=== PATIENT | female | born 1985 | race Caucasian/White ===

== ENCOUNTER 2021-07-25 11:20 | Emergency (ER) | payer SELFPAY ==
[2021-07-25] MEDS ORDERED: Acetaminophen 500 MG TAB ONE (11:51)
[2021-07-25] MEDS ORDERED: Ondansetron PF 4 MG/2 ML Vial ONE (11:51)
[2021-07-25 12:14] LABS: #Lymphocytes 0.4 thou/uL (1.20-3.40); #Monocytes 0.3 thou/uL (0.11-0.59); #Neutrophils 4.6 thou/uL (1.40-6.50); %Basophils 0.2 % (0.0-1.0); %Eosinophils 0.1 % (0.0-10.0); %Lymphocytes 7.5 % (21.0-51.0); %Monocytes 6.4 % (0.0-10.0); %Neutrophils 85.8 % (42.0-75.0); Hemoglobin 14.2 g/dL (12.0-16.0); Mean Corpuscular HGB CONC 34.4 g/dL (32.0-36.0); Mean Corpuscular Hemoglobin 31.9 pg (27.0-31.0); Mean Corpuscular Volume 92.8 fL (78.0-98.0); Mean Platelet Volume 7.2 fL (7.4-10.4); Platelet Count 161 thou/uL (130-400); RBC Distribution Width 11.5 % (11.5-14.5); Red Blood Cell (RBC) Count 4.44 mill/uL (4.20-5.40); White Blood Cell (WBC) Count 5.3 thou/uL (4.8-10.8)
[2021-07-25 12:39] LABS: ALT (SGPT) 15 U/L (8-55); AST (SGOT) 24 U/L (5-34); Albumin 4.8 g/dL (3.5-5.0); Alkaline Phosphatase 55 U/L (40-110); Anion Gap 16 mmol/L (10-20); BUN (Urea Nitrogen) 10 mg/dL (7.0-18.7); Bilirubin, Total 0.4 mg/dL (0.2-1.2); Calc. Creatinine Clearance 0 mL/min (70-130); Calcium 9.6 mg/dL (7.8-10.44); Carbon Dioxide 24 mmol/L (22-29); Chloride 99 mmol/L (98-107); Globulin 3.3 g/dL (2.4-3.5); Glucose 109 mg/dL (70-105); Potassium 3.5 mmol/L (3.5-5.1); Protein, Total 8.1 g/dL (6.0-8.3); Sodium 135 mmol/L (136-145)
[2021-07-25 19:02] LABS: SARS-CoV-2 PCR by NAA Not Detected (NotDetected)
== END 2021-07-25 13:10 | disposition home or self-care (01) ==
LOC: ERS 11:20
DX: U07.1 COVID-19 (principal); R11.2 Nausea with vomiting, unspecified; Z20.822 Contact with and (suspected) exposure to COVID-19
CPT/HCPCS: 71045; 80053; 84484; 85025; 96374; J2405; U0003; U0005

== ENCOUNTER 2023-04-14 10:22 | Emergency (ER) | payer SELFPAY ==
[2023-04-14] MEDS ORDERED: Lorazepam 1 MG TAB ONE (11:03)
[2023-04-14 11:11] LABS: #Eosinphils 0.1 thou/uL (0.0-0.7); #Monocytes 0.4 thou/uL (0.11-0.59); #Neutrophils 4.8 thou/uL (1.40-6.50); %Basophils 0.4 % (0.0-1.0); %Eosinophils 1.8 % (0.0-10.0); %Monocytes 5.7 % (0.0-10.0); %Neutrophils 65.6 % (42.0-75.0); Hemoglobin 13.4 g/dL (12.0-16.0); Mean Corpuscular HGB CONC 33.5 g/dL (32.0-36.0); Mean Corpuscular Hemoglobin 32.5 pg (27.0-31.0); Mean Corpuscular Volume 97.1 fl (78.0-98.0); Mean Platelet Volume 9.8 fL (7.4-10.4); Platelet Count 244 10x3/uL (130-400); RBC Distribution Width 12.3 % (11.5-14.5); Red Blood Cell (RBC) Count 4.12 mill/uL (4.20-5.40); White Blood Cell (WBC) Count 7.3 10x3/uL (4.8-10.8)
[2023-04-14 12:13] LABS: ALT (SGPT) 14 U/L (8-55); AST (SGOT) 13 U/L (5-34); Albumin 4.7 g/dL (3.5-5.0); Alkaline Phosphatase 48 U/L (40-110); Anion Gap 11 mmol/L (10-20); BUN (Urea Nitrogen) 8 mg/dL (7.0-18.7); Bilirubin, Total 0.6 mg/dL (0.2-1.2); Calc. Creatinine Clearance 0 mL/min (70-130); Calcium 9.4 mg/dL (7.8-10.44); Carbon Dioxide 24 mmol/L (22-29); Chloride 107 mmol/L (98-107); Estimated GFR 99; Globulin 2.4 g/dL (2.4-3.5); Glucose 93 mg/dL (70-105); Magnesium 2.1 mg/dL (1.6-2.6); Potassium 3.9 mmol/L (3.5-5.1); Protein, Total 7.1 g/dL (6.0-8.3); Sodium 138 mmol/L (136-145)
== END 2023-04-14 13:10 | disposition home or self-care (01) ==
LOC: ERS 10:22
DX: M62.838 Other muscle spasm (principal)
CPT/HCPCS: 36415; 70450; 80053; 83735; 85025

== ENCOUNTER 2025-05-24 07:35 | Inpatient (IN) | payer SELFPAY ==
[2025-05-24] MEDS ORDERED: Ketorolac Tromethamine 30 MG (1 mL) VIAL ONE (08:54)
[2025-05-24] MEDS ORDERED: Dexamethasone 10 MG/ML VIAL ONE ×2 (08:54→14:19)
[2025-05-24 09:15] LABS: #Basophils 0.05 10x3/uL (0.0-0.2); #Eosinophils 0.12 10x3/uL (0.0-0.7); #Monocytes 0.42 10x3/uL (0.11-0.59); #Neutrophils 5.23 10x3/uL (1.40-6.50); %Basophils 0.7 % (0.0-1.0); %Eosinophils 1.6 % (0.0-10.0); %Lymphocytes 23.0 % (21.0-51.0); %Monocytes 5.5 % (0.0-10.0); %Neutrophils 68.2 % (42.0-75.0); Hematocrit 41.4 % (36.0-47.0); Hemoglobin 14.3 g/dL (12.0-16.0); Mean Corpuscular Hemoglobin 31.8 pg (27.0-31.0); Mean Corpuscular Volume 92.0 fL (78.0-98.0); Platelet Count 256 10x3/uL (130-400); Red Blood Cell (RBC) Count 4.50 mill/uL (4.20-5.40); White Blood Cell (WBC) Count 7.66 10x3/uL (4.8-10.8)
[2025-05-24 09:17] LABS: ALT (SGPT) 38 U/L (Less than 34); AST (SGOT) 38 U/L (11-34); Albumin 4.5 g/dL (3.1-4.5); Alkaline Phosphatase 39 U/L (40-110); Anion Gap 15 mmol/L (10-20); BUN (Urea Nitrogen) 11 mg/dL (7.0-18.7); Bilirubin, Total 0.4 mg/dL (0.3-1.2); Calc. Creatinine Clearance 0 mL/min (70-130); Calcium 9.5 mg/dL (7.8-10.44); Carbon Dioxide 19 mmol/L (22-29); Chloride 107 mmol/L (98-107); Globulin 3.3 g/dL (2.4-3.5); Glucose 122 mg/dL (70-105); Potassium 4.2 mmol/L (3.5-5.1); Sodium 137 mmol/L (136-145)
[2025-05-24] MEDS ORDERED: HYDROmorphone 0.5 MG/0.5 ML SYRINGE ONE (14:46)
[2025-05-24] MEDS ORDERED: Milk Of Magnesia 30 ML UDCUP PO PRN (15:20)
[2025-05-24] MEDS ORDERED: Acetaminophen 325 MG TAB PO PRN (15:20)
[2025-05-24] MEDS ORDERED: diphenhydrAMINE 25 MG CAP PO PRN (15:20)
[2025-05-24 17:12] LABS: INR-International Normal Ratio 1.0; PTT 26.2 sec (22.9-36.1); Prothrombin Time 13.7 sec (12.0-14.7)
[2025-05-24] MEDS: HYDROcodone/Acetaminophen 7.5/325 mg Tablet PO PRN (18:34)
[2025-05-24] MEDS: Dexamethasone 4 MG TAB PO SCH (18:34)
[2025-05-24] MEDS: Gabapentin 300 MG CAP PO SCH ×2 (20:05→20:49)
[2025-05-24] MEDS: Pantoprazole 40 MG DR.TAB PO SCH (20:20)
[2025-05-24 20:23] VITALS: BMI 33.9
[2025-05-24] MEDS: Ketorolac Tromethamine 30 MG (1 mL) VIAL IVP PRN (21:58)
[2025-05-25] MEDS: Ondansetron PF 4 MG/2 ML Vial IVP PRN (04:14)
[2025-05-25] MEDS: LevoFLOXacin 750 mg/D5W 750 MG in Premix 1 BAG IVPB SCH (07:28)
[2025-05-25] MEDS ORDERED: Thrombin 5000 UNITS/5 ML VIAL ONE (07:34)
[2025-05-25] MEDS ORDERED: fentaNYL PF 100 MCG/2 ML SYRINGE ONE ×2 (07:51→11:53)
[2025-05-25] MEDS ORDERED: SUCCINYLCHOLINE/SOD CL,ISO/PF 200 MG/10 ML SYRINGE FS ONE (07:51)
[2025-05-25] MEDS ORDERED: PROPOFOL 20 ML ONE (07:52)
[2025-05-25] MEDS ORDERED: Clindamycin/D5W 900 MG in Premix 1 BAG IVPB SCH (08:00)
[2025-05-25] MEDS ORDERED: NEOSTIGMINE 3 MG/3 ML SYRINGE ONE (10:43)
[2025-05-25] MEDS ORDERED: Glycopyrrolate 0.2 MG/ML 5 ML SYRINGE ONE (10:43)
[2025-05-25] MEDS: Pantoprazole 40 MG DR.TAB PO SCH (13:44)
[2025-05-25] MEDS: Clindamycin/D5W 900 MG in Premix 1 BAG IVPB SCH (16:59)
[2025-05-25] MEDS: Phenol 177 ML BOT PO PRN (21:47)
[2025-05-26] MEDS: LevoFLOXacin 750 mg/D5W 750 MG in Premix 1 BAG IVPB SCH (08:21)
[2025-05-26] MEDS: Acetaminophen/Codeine 30-300mg Tablet PO PRN (13:05)
[2025-05-26] MEDS: Famotidine 20 MG TAB PO PRN (19:53)
[2025-05-27 11:49] VITALS: BP 159/95; TEMP 98.8
== END 2025-05-27 13:00 | disposition home or self-care (01) | DRG 473 ==
LOC: ERS 07:35 → SURG A 15:28 → OBSVTOIN 05-25 11:15
PROVIDERS: ADMIT Surgery; ATTEND Surgery
PROC: 0RG20A0 Fusion of 2 or more Cervical Vertebral Joints with Interbody Fusion Device, Anterior Approach, Anterior Column, Open Approach (ICD-10-PCS; principal; 2025-05-25)
PROC: 0RB30ZZ Excision of Cervical Vertebral Disc, Open Approach (ICD-10-PCS; 2025-05-25)
PROC: 00NW0ZZ Release Cervical Spinal Cord, Open Approach (ICD-10-PCS; 2025-05-25)
PROC: 01N10ZZ Release Cervical Nerve, Open Approach (ICD-10-PCS; 2025-05-25)
PROC: 4A11X4G Monitoring of Peripheral Nervous Electrical Activity, Intraoperative, External Approach (ICD-10-PCS; 2025-05-25)
PROC: 3E03329 Introduction of Other Anti-infective into Peripheral Vein, Percutaneous Approach (ICD-10-PCS; 2025-05-25)
DX: M40.292 Other kyphosis, cervical region (principal); M54.12 Radiculopathy, cervical region; Z88.1 Allergy status to other antibiotic agents; Z88.0 Allergy status to penicillin; Z88.8 Allergy status to other drugs, medicaments and biological substances; Z91.040 Latex allergy status; Z98.890 Other specified postprocedural states
CPT/HCPCS: 36415; 72040; 72125; 72141; 80053; 84484; 85025; 85610; 85730; 86141; 93005; 96374; 96375; 96376; C1713; J1100; J1171; J1885; J1956; J2250; J2270; J2272; J2405; J2704; J3010; J3373; J3490; J7030; J8540